=== PATIENT | male | born 1985 | race African-American/Black ===

== ENCOUNTER 2019-02-24 09:23 | Emergency (ER) | payer BC ==
[~2019-02-24] VITALS: Ht 180.3 cm; Wt 129.7 kg
[~2019-02-24 09:23] MED LIST: COLACE100 MG PO; IBUPROFEN 600600 M1 PO; NORCO 5-325 TA1 EACH PO; PHENERGAN 25 MG25 M1 PO
[2019-02-24 09:39] LABS: URINE BILIRUBIN NEGATIVE (Negative); URINE BLOOD 2+ (Negative); URINE CLARITY CLEAR; URINE COLOR YELLOW; URINE GLUCOSE-RANDOM* NEGATIVE (Negative); URINE KETONES NEGATIVE (Negative); URINE NITRITE-REFLEX NEGATIVE (Negative); URINE PROTEIN (DIPSTICK) NEGATIVE (Negative); URINE UROBILINOGEN 0.2 E.U./dl (0.2-1.0)
[2019-02-24 09:40] LABS: URINE LEUKOCYTES-REFLEX 1+ (Negative)
[2019-02-24 09:47] LABS: HEMATOCRIT 41.8 % (42.0-52.0); HEMOGLOBIN 14.1 gm/dL (14.0-18.0); MCH 29.3 pg (26.0-34.0); MCHC 33.8 g/dL (28.0-37.0); MCV 86.5 fL (80.0-100.0); RBC 4.83 mil/uL (4.50-6.00); RDW 13.6 % (10.5-14.5); WBC 6.8 thou/uL (4.0-11.0)
[2019-02-24 09:56] LABS: CALCIUM 9.7 mg/dL (8.5-10.1); POTASSIUM 3.7 mmol/L (3.5-5.1)
[2019-02-24 10:14] LABS: BACTERIA-REFLEX 1-9 Few /HPF (None Seen); CASTS None Seen /LPF (None Seen); CRYSTALS None Seen /LPF (None Seen); SQUAMOUS 0-3 Few /LPF (0-3); URINE WBC-REFLEX 6-15 Few /HPF (0-5)
[2019-02-24] MEDS ORDERED: METRONIDAZOLE500 M4 PO (10:22)
[2019-02-24 10:23] VITALS: BP 128/71
== END 2019-02-24 10:23 | disposition home or self-care (01) ==
LOC: ER 09:23
PROVIDERS: Emergency Medicine
DX: A59.9 Trichomoniasis, unspecified (principal)